=== PATIENT | female | born 1970 | race Two or more races ===

== ENCOUNTER 2016-07-28 07:10 | Inpatient (IN) | payer MEDICARE, OTHER ==
[~2016-07-28] VITALS: Ht 162.6 cm; Wt 66.7 kg
--- NOTE | 2016-07-28 07:18 | NUR ---
DOMONIQUE FROM [facility]. PATIENT WAS SENT BY MD IBRAHIM DUE TO RIGHT SIDE OF HEAD WOUND POSSIBLE INFECTION. PATIENT IS AWAKE, HOWEVER NON VERBAL. APPEARS IN NO APPARENT DISTRESS. SATING WELL ON ROOM AIR. OLD TRACHEOSTOMY, COVERED WITH DRY DRESSING. PATIENT HAS GT, ABDOMEN NON TENDERED. VSS. AWAITING FOR MD HOLMAN
[2016-07-28] MEDS ORDERED: CEFTRIAXONE 1GM BAG (ER ONLY) 1 GM/50 ML PIGGYBACK IV ONE (07:30)
[2016-07-28] MEDS ORDERED: VANCOMYCIN 1 GM in IV D5W 250 ML IV ONE (07:30)
[2016-07-28] MEDS ORDERED: IV NS 0.9% 1,000 ML BAG IV ONE (07:30)
--- NOTE | 2016-07-28 07:30 | NUR ---
IV ACCESSED TO LEFT HAND G18.BLOOD SAMPLE SENT TO LAB
[2016-07-28] MEDS ORDERED: IV NS 0.9% 1,000 ML ONE (07:31)
[2016-07-28] MEDS ORDERED: IV SET PRIMARY PUMP SET 1 EA INFUS.SET MC ONE ×2 (07:31→11:11)
[2016-07-28] MEDS ORDERED: IV SET PRIMARY 1 EA INFUS.SET MC ONE (07:31)
[2016-07-28] MEDS ORDERED: CEFTRIAXONE 1GM BAG (ER ONLY) 50 ML IV ONE (07:31)
[2016-07-28 07:48] LABS: BASOPHILS % (AUTO) 0.5 % (0.0-2.0); EOSINOPHILS # (AUTO) 0.1 /CMM (0.0-0.7); EOSINOPHILS % (AUTO) 1.8 % (0.0-6.0); HEMATOCRIT 39 % (33-45); HEMOGLOBIN 12.6 g/dL (11.5-14.8); LYMPHOCYTES # (AUTO) 1.7 /CMM (0.8-4.8); LYMPHOCYTES % (AUTO) 37.1 % (20.0-44.0); MEAN CORPUSCULAR HEMOGLOBIN 27 PG (26.0-33.0); MEAN CORPUSCULAR HGB CONC 33 g/dl (31.0-36.0); MEAN CORPUSCULAR VOLUME 82 fL (82-100); MONOCYTES # (AUTO) 0.3 /CMM (0.1-1.30); MONOCYTES % (AUTO) 7.1 % (2.0-12.0); NEUTROPHILS # (AUTO) 2.5 /CMM (1.8-8.9); NEUTROPHILS % (AUTO) 53.5 % (43.0-81.0); PLATELET COUNT (AUTO) 254 /CMM (150-450); RED BLOOD CELL COUNT(AUTO) 4.71 MIL/uL (4.0-5.2); WHITE BLOOD COUNT (AUTO) 4.7 K/uL (4.3-11.0)
[2016-07-28 07:53] LABS: CALCIUM, SERUM 8.8 mg/dL (8.5-10.1); CREATININE 0.5 mg/dL (0.6-1.3); POTASSIUM 4.2 mmol/L (3.5-5.1)
[2016-07-28] MEDS ORDERED: SODI45SP6 (07:57)
[2016-07-28] MEDS ORDERED: ACET325T53 GT (07:57)
[2016-07-28] MEDS ORDERED: LEVE100S GT (07:57)
[2016-07-28] MEDS ORDERED: SENN8.6T6 GT (07:57)
[2016-07-28] MEDS ORDERED: OMEP20CA10 GT (07:57)
[2016-07-28 08:03] LABS: LACTIC ACID 1.3 mmol/L (0.4-2.0)
[2016-07-28 08:04] LABS: INR 0.99 (0.87-1.13); PROTHROMBIN TIME 10.6 SECS (9.5-12.7)
--- NOTE | 2016-07-28 08:05 | NUR ---
MEDICATIONS GIVEN ORDERED.
--- NOTE | 2016-07-28 08:34 | NUR ---
report given to jovanny huntley for raf
--- NOTE | 2016-07-28 09:03 | NUR ---
PER JOSE A VERAS TO BE NOTIFIED FOR FURTHER QUESTIONS [phone]
[2016-07-28 09:42] VITALS: BP 116/77
--- NOTE | 2016-07-28 10:20 | NUR ---
MS/RN: notes Received new admitted patient from ER via [facility] with stable condition, patient awake, no verbal noted, initial admitted assessment completed, please completed data in flowsheets. Skin assessment done, right temporal head unhealed wound, picture taken with dressing on it, will follow up with MD prior remove dressing. patient was seen by MD at bed side. keep patient clean and comfort, keep bed low and locked all the time, will continue to monitor closely and intervene as appropriate.
[2016-07-28] MEDS ORDERED: SENNOSIDES 8.6 MG TABLET GT PRN (11:00)
[2016-07-28] MEDS ORDERED: MAGNESIUM HYDROXIDE 30 ML UDC PO PRN (11:00)
[2016-07-28] MEDS ORDERED: ACETAMINOPHEN 325 MG TABLET PO PRN (11:00)
[2016-07-28] MEDS ORDERED: ONDANSETRON HCL/PF 4 MG/2 ML VIAL IVP PRN (11:00)
[2016-07-28] MEDS ORDERED: MAG HYDROX/AL HYDROX/SIMETH 30 ML UDC PO PRN (11:00)
[2016-07-28] MEDS ORDERED: Z GUARD REMEDY 2 OZ OINT TP PRN (11:00)
[2016-07-28] MEDS ORDERED: HYDROCODONE/APAP 5/325MG 1 EACH TABLET PO PRN (11:00)
[2016-07-28] MEDS ORDERED: MORPHINE SULFATE INJ 2 MG/ML DISP.SYRIN IV PRN (11:00)
[2016-07-28] MEDS: IV D5/0.45 NACL 1,000 ML IV PRN (11:19)
[2016-07-28 16:59] VITALS: BP 132/78
[2016-07-28] MEDS: SALINE NASAL SPRAY 0.65% 1 BOTTLE BOTTLE NS SCH (17:07)
--- NOTE | 2016-07-28 17:42 | NUR ---
MS/RN: notes consent for debridement of right head and skin graft reconstruction obtained from patient's daughter Vanenssa Smallwood. patient is pulling the dressing off on right temporal, restrain order obtained from Vannessa Smallwood, risk benefits explained to patient's daughter Eidith, verbalizes understanding.
--- NOTE | 2016-07-28 18:51 | NUR ---
MS/RN: notes patient's condition remains stable, no s/s of any distress noted, will endorse to night RN for continuity of care.
--- NOTE | 2016-07-28 19:25 | NUR ---
MS RN NOTES RECEIVED PT IN BED, AWAKE, A/O X 1. DAUGHTER AT BEDSIDE. IV SITE ON LEFT HAND INTACT AND PATENT, ON D2 1/2 NS @ 75 CC /HR, IVF INFUSING WELL. RIGHT LATERAL TEMPORAL WOUND WITH INTACT DRESSING. ALL NEEDS ATTENDED. KEPT COMFORTABLE. SAFETY PRECAUTIONS OBSERVED. CALL LIGHT WITHIN REACH. WILL CONTINUE TO MONITOR.
[2016-07-28 20:00] VITALS: BP 114/81
[2016-07-28] MEDS: LEVETIRACETAM SOL (5 ML) 100 MG/ML UDC GT SCH (21:06)
[2016-07-28] MEDS: GLYTROL 1,000 ML BAG GT PRN (22:40)
[2016-07-29] VITALS (8 sets, daily range): BP systolic 96–143; BP diastolic 68–83
[2016-07-29] MEDS: IV D5/0.45 NACL 1,000 ML IV PRN ×2 (01:30→17:21)
[2016-07-29 06:29] LABS: BASOPHILS % (AUTO) 0.4 % (0.0-2.0); EOSINOPHILS # (AUTO) 0.1 /CMM (0.0-0.7); EOSINOPHILS % (AUTO) 2.4 % (0.0-6.0); HEMATOCRIT 35 % (33-45); HEMOGLOBIN 11.6 g/dL (11.5-14.8); LYMPHOCYTES # (AUTO) 1.5 /CMM (0.8-4.8); MEAN CORPUSCULAR HEMOGLOBIN 27 PG (26.0-33.0); MEAN CORPUSCULAR HGB CONC 33 g/dl (31.0-36.0); MEAN CORPUSCULAR VOLUME 83 fL (82-100); MONOCYTES # (AUTO) 0.4 /CMM (0.1-1.30); MONOCYTES % (AUTO) 9.1 % (2.0-12.0); NEUTROPHILS # (AUTO) 2.1 /CMM (1.8-8.9); NEUTROPHILS % (AUTO) 51.1 % (43.0-81.0); PLATELET COUNT (AUTO) 241 /CMM (150-450); RED BLOOD CELL COUNT(AUTO) 4.26 MIL/uL (4.0-5.2); WHITE BLOOD COUNT (AUTO) 4.1 K/uL (4.3-11.0)
[2016-07-29 06:36] LABS: RETICULOCYTE COUNT 2.7 % (0.6-2.5)
[2016-07-29 06:40] LABS: INR 1.04 (0.87-1.13); PROTHROMBIN TIME 11.1 SECS (9.5-12.7)
[2016-07-29 06:47] LABS: ALBUMIN 3.1 g/dL (3.4-5.0); BILIRUBIN,TOTAL 0.6 mg/dL (0.2-1.0); CALCIUM, SERUM 8.6 mg/dL (8.5-10.1); CREATININE 0.6 mg/dL (0.6-1.3); MAGNESIUM 1.8 mg/dL (1.8-2.4); PHOSPHORUS 4.6 mg/dL (2.5-4.9); POTASSIUM 3.9 mmol/L (3.5-5.1); THYROID STIMULATING HORMONE 1.901 uIU/mL (0.358-3.74); TOTAL PROTEIN, SERUM 7.7 g/dL (6.4-8.2)
--- NOTE | 2016-07-29 07:20 | NUR ---
MS RN NOTES PT IN BED, AWAKE, A/O X 1. ON NPO SINCE 12 MN FOR DEBRIDEMENT OF RIGHT HEAD, SKIN GRAFT RECONSTRUCTION. IV SITE ON LEFT HAND INTACT AND PATENT, ON D2 1/2 NS @ 75 CC /HR, IVF INFUSING WELL. RIGHT LATERAL TEMPORAL WOUND WITH INTACT DRESSING. NO S/S OF PAIN OR DISCOMFORT AT THIS TIME. ALL NEEDS ATTENDED. KEPT COMFORTABLE. SAFETY PRECAUTIONS OBSERVED. CALL LIGHT WITHIN REACH. WILL ENDORSE RO NEXT SHIFT FOR GOVIND.
[2016-07-29] MEDS: PANTOPRAZOLE 40 MG TABLET.DR PO SCH (07:30)
--- NOTE | 2016-07-29 07:35 | NUR ---
RN OPEN NOTES RECEIVED REPORT FROM BRIQUETTE MACHINE OPERATOR HELPER NURSE. PATIENT IS NPO DUE TO SCHEDULED SURGERY FOR TODAY. PATIENT IS IN BED, AWAKE, NON VERBAL. NO SIGNS AND SYMPTOMS OF DISTRESS. BED IN LOW POSITION, LOCKED AND TWO SIDE RAILS ARE UP. WILL CONTINUE TO ASSESS AND MONITOR PATIENT THROUGH OUT MY SHIFT.
[2016-07-29] MEDS: ACETAMINOPHEN 325 MG TABLET PO SCH (08:51)
[2016-07-29] MEDS: LEVETIRACETAM SOL (5 ML) 100 MG/ML UDC GT SCH ×2 (08:51→20:51)
[2016-07-29] MEDS: SALINE NASAL SPRAY 0.65% 1 BOTTLE BOTTLE NS SCH ×2 (09:00→17:19)
--- NOTE | 2016-07-29 09:23 | NUR ---
CALLED PHARMACY TO SEND A NEW OCEAN NASAL SPRAY THE OLD ONE IS NOT AT THE CASSETTE OR BEDSIDE
--- NOTE | 2016-07-29 09:27 | NUR ---
PATIENT LEFT THE FLOOR FOR SURGERY.
[2016-07-29] MEDS ORDERED: MIDAZOLAM HCL 2 MG/2ML VIAL ONE (10:05)
[2016-07-29] MEDS ORDERED: FENTANYL PF 100MCG/2ML AMPUL ONE (10:05)
[2016-07-29] MEDS ORDERED: MINERAL OIL 10 ML VIAL MC ONE (10:06)
[2016-07-29] MEDS ORDERED: LIDOCAINE HCL/PF 1% 30 ML SDV ONE (10:06)
[2016-07-29] MEDS ORDERED: BUPIVACAINE MPF W/EPI 0.25% 30 ML VIAL ONE (10:06)
--- NOTE | 2016-07-29 11:24 | NUR ---
PATIENT RETURNED TO [facility] FROM SURGERY. PER DR ORDERS, RESUME ALL PRE OPERATIONS ORDERS. PATIENT VITAL SIGNS ARE BLOOD PRESSURE 96/68, HEART RATE 63, OXYGEN 96% AND TEMPERATURE 98.1. WILL CONTINUE TO MONITOR PATIENT VITAL SIGNS Q15MIN FOR ONE HOUR OR UNTIL STABLE.
[2016-07-29] MEDS: GLYTROL 1,000 ML BAG GT PRN (11:37)
--- NOTE | 2016-07-29 19:14 | NUR ---
RN CLOSING NOTES RECEIVED REPORT FROM RAG BOILER NURSE. PATIENT IS IN BED, NON VERBAL. FAMILY AT BEDSIDE. PATIENT HAD A DEBRIDEMENT AND GRAFT DONE TODAY. NO SIGNS AND SYMPTOMS OF DISTRESS. BED IN LOW POSITION, LOCKED AND TWO SIDE RAILS ARE UP. WILL ENDORSE TO RAG BOILER NURSE.
--- NOTE | 2016-07-29 19:25 | NUR ---
MS RN NOTES RECEIVED PT IN BED, AWAKE, A/O X 1 . NON VERBAL. MAKES EYE CONTACT. NO DISTRESS, NO SOB NOTED. ON RA, O2 SATURATION IS 96 %. ABDOMEN IS SOFT AND NON DISTENDED. GTF LESLYE WELL. NO RESIDUAL NOTED AT THIS TIME. HOB ELEVATED FOR ASPIRATION PRECAUTION. NO S/S OF PAIN OR DISCOMFORT. S/P DEBRIDEMENT ON RIGHT HEAD, WITH INTACT DRESSING. ALL NEEDS ATTENDED. KEPT COMFORTABLE. CALL LIGHT WITHIN REACH. WILL CONT TO MONITOR.
[2016-07-30] MEDS ORDERED: IV SET PRIMARY PUMP SET 1 EA INFUS.SET MC ONE (05:41)
[2016-07-30] MEDS: IV D5/0.45 NACL 1,000 ML IV PRN ×2 (05:55→23:53)
--- NOTE | 2016-07-30 06:40 | NUR ---
MS RN NOTES PT IN BED,ASLEEP AT THIS TIME. A/O X 1. NON VERBAL. AROUSABLE, MAKES EYE CONTACT. NO DISTRESS, NO SOB NOTED. ON RA, O2 SATURATION IS 96 %. ABDOMEN IS SOFT AND NON DISTENDED. IV SITE ON LEFT HAND INTACT AND PATENT, NO S/S OF INFILTRATION NOTED. IVF INFUSING WELL. GTF LESLYE WELL. NO RESIDUAL NOTED AT THIS TIME. HOB ELEVATED FOR ASPIRATION PRECAUTION. NO S/S OF PAIN OR DISCOMFORT. S/P DEBRIDEMENT ON RIGHT HEAD, WITH INTACT DRESSING. RIGHT THIGH SKIN GRAFT SITE WITH INTACT DRESSING. ALL NEEDS ATTENDED. KEPT COMFORTABLE. CALL LIGHT WITHIN REACH. WILL ENDORSE TO NEXT SHIFT FOR GOVIND.
--- NOTE | 2016-07-30 07:48 | NUR ---
RN OPEN NOTES RECEIVED REPORT FROM NATIONAL PARK RANGER NURSE. PATIENT IS IN BED, AWAKE, NON VERBAL. NO SIGNS AND SYMPTOMS OF DISTRESS. BED IN LOW POSITION, LOCKED AND 2 SIDE RAILS ARE UP. WILL CONTINUE TO ASSESS AND MONITOR PATIENT.
[2016-07-30 08:00] VITALS: BP 128/63
[2016-07-30] MEDS: SALINE NASAL SPRAY 0.65% 1 BOTTLE BOTTLE NS SCH ×2 (08:29→17:12)
[2016-07-30] MEDS: PANTOPRAZOLE 40 MG TABLET.DR PO SCH (08:29)
[2016-07-30] MEDS: ACETAMINOPHEN 325 MG TABLET PO SCH (08:29)
[2016-07-30] MEDS: LEVETIRACETAM SOL (5 ML) 100 MG/ML UDC GT SCH ×2 (08:29→22:23)
[2016-07-30 12:27] LABS: BASOPHILS % (AUTO) 0.4 % (0.0-2.0); EOSINOPHILS % (AUTO) 0.7 % (0.0-6.0); HEMATOCRIT 34 % (33-45); HEMOGLOBIN 11.3 g/dL (11.5-14.8); LYMPHOCYTES # (AUTO) 2.2 /CMM (0.8-4.8); LYMPHOCYTES % (AUTO) 39.8 % (20.0-44.0); MEAN CORPUSCULAR HEMOGLOBIN 27 PG (26.0-33.0); MEAN CORPUSCULAR HGB CONC 33 g/dl (31.0-36.0); MEAN CORPUSCULAR VOLUME 82 fL (82-100); MONOCYTES # (AUTO) 0.5 /CMM (0.1-1.30); MONOCYTES % (AUTO) 9.7 % (2.0-12.0); NEUTROPHILS # (AUTO) 2.8 /CMM (1.8-8.9); NEUTROPHILS % (AUTO) 49.4 % (43.0-81.0); PLATELET COUNT (AUTO) 248 /CMM (150-450); RDW COEFFICIENT OF VARIATION 16.6 (11.5-15.0); RED BLOOD CELL COUNT(AUTO) 4.18 MIL/uL (4.0-5.2); WHITE BLOOD COUNT (AUTO) 5.6 K/uL (4.3-11.0)
[2016-07-30 12:36] LABS: CALCIUM, SERUM 8.8 mg/dL (8.5-10.1); CREATININE 0.5 mg/dL (0.6-1.3); MAGNESIUM 1.8 mg/dL (1.8-2.4); POTASSIUM 3.5 mmol/L (3.5-5.1)
[2016-07-30] MEDS: GLYTROL 1,000 ML BAG GT PRN (15:44)
[2016-07-30 16:00] VITALS: BP 167/70
[2016-07-30] MEDS ORDERED: diphenhydrAMINE HCL ELIX 25 MG/10 ML UDC PO ONE (17:30)
--- NOTE | 2016-07-30 18:45 | NUR ---
RN CLOSING NOTES PATIENT IS IN BED, WITH HER EYES OPEN. NON VERBAL. FAMILY AT BEDSIDE. NO SIGNS AND SYMPTOMS OF DISTRESS OR PAIN. PATIENT SEEMS TO HAVE ITCHINESS IN HER FACE, ONE TIME ORDER OF BENADRYL RECEIVED AND CARRIED OUT. VITAL SIGNS ARE WITHIN ACCEPTABLE RANGE. IV SITE IS INTACT AND CONTINUOUSLY FLUID IS CURRENTLY RUNNING. GT IS INTACT AND CURRENTLY RUNNING AT 65CC.HR. BED IS IN LOW POSITION, LOCKED AND 2 SIDE RAILS ARE UP. WILL ENDORSE TO FIRE ALARM INSTALLER NURSE.
--- NOTE | 2016-07-30 19:15 | NUR ---
MS RN NOTES RECEIVED PT IN BED, AWAKE, A/O X 1 . NON VERBAL. MAKES EYE CONTACT. SON AND FAMILY MEMBER AT BED SIDE. NO DISTRESS, NO SOB NOTED. ON RA, O2 SATURATION IS 96 %. ABDOMEN IS SOFT AND NON DISTENDED. GTF LESLYE WELL. NO RESIDUAL NOTED AT THIS TIME. HOB ELEVATED FOR ASPIRATION PRECAUTION. NO S/S OF PAIN OR DISCOMFORT.IV SITE ON LEFT HAND INTACT AND PATENT , NO S/S OF INFILTRATION NOTED. S/P DEBRIDEMENT ON RIGHT HEAD, WITH INTACT DRESSING. ALL NEEDS ATTENDED. KEPT COMFORTABLE. CALL LIGHT WITHIN REACH. WILL CONT TO MONITOR.
[2016-07-30 20:00] VITALS: BP 135/76
[2016-07-31 03:35] VITALS: BP 135/76
--- NOTE | 2016-07-31 06:50 | NUR ---
MS RN NOTES PT IN BED, A/O X 1 . NON VERBAL. MAKES EYE CONTACT. NO DISTRESS, NO SOB NOTED. ON RA, O2 SATURATION IS 96 %. ABDOMEN IS SOFT AND NON DISTENDED. GTF LESLYE WELL. NO RESIDUAL NOTED AT THIS TIME. HOB ELEVATED FOR ASPIRATION PRECAUTION. NO S/S OF PAIN OR DISCOMFORT.IV SITE ON LEFT HAND INTACT AND PATENT , NO S/S OF INFILTRATION NOTED. S/P DEBRIDEMENT ON RIGHT HEAD, WITH INTACT DRESSING. ALL NEEDS ATTENDED. KEPT COMFORTABLE. CALL LIGHT WITHIN REACH. WILL ENDORSE TO NEXT SHIFT FOR GOVIND.
--- NOTE | 2016-07-31 07:30 | NUR ---
RECEIVED PT. THIS AM NON VERBAL,ALERT AND ORIENTED X1.SIDE RAILS UP. APPEARS COMFORTABLE
[2016-07-31 07:37] LABS: BASOPHILS % (AUTO) 0.5 % (0.0-2.0); EOSINOPHILS # (AUTO) 0.1 /CMM (0.0-0.7); HEMATOCRIT 36 % (33-45); HEMOGLOBIN 11.9 g/dL (11.5-14.8); LYMPHOCYTES # (AUTO) 2.1 /CMM (0.8-4.8); MEAN CORPUSCULAR HEMOGLOBIN 27 PG (26.0-33.0); MEAN CORPUSCULAR HGB CONC 33 g/dl (31.0-36.0); MEAN CORPUSCULAR VOLUME 83 fL (82-100); MONOCYTES # (AUTO) 0.5 /CMM (0.1-1.30); MONOCYTES % (AUTO) 9.2 % (2.0-12.0); NEUTROPHILS # (AUTO) 2.9 /CMM (1.8-8.9); NEUTROPHILS % (AUTO) 51.3 % (43.0-81.0); PLATELET COUNT (AUTO) 249 /CMM (150-450); RDW COEFFICIENT OF VARIATION 16.8 (11.5-15.0); RED BLOOD CELL COUNT(AUTO) 4.36 MIL/uL (4.0-5.2); WHITE BLOOD COUNT (AUTO) 5.6 K/uL (4.3-11.0)
[2016-07-31 07:44] LABS: CALCIUM, SERUM 8.7 mg/dL (8.5-10.1); CREATININE 0.5 mg/dL (0.6-1.3); MAGNESIUM 1.8 mg/dL (1.8-2.4); POTASSIUM 3.6 mmol/L (3.5-5.1)
[2016-07-31 08:00] VITALS: BP 124/82
[2016-07-31] MEDS: LEVETIRACETAM SOL (5 ML) 100 MG/ML UDC GT SCH ×2 (10:27→21:05)
[2016-07-31] MEDS: PANTOPRAZOLE 40 MG TABLET.DR PO SCH (10:27)
[2016-07-31] MEDS: ACETAMINOPHEN 325 MG TABLET PO SCH (10:27)
[2016-07-31] MEDS: SALINE NASAL SPRAY 0.65% 1 BOTTLE BOTTLE NS SCH ×2 (10:31→18:32)
--- NOTE | 2016-07-31 12:30 | NUR ---
DARREN LEDEZMA CALLED PT. WITH LRG. AMT. YELLOWISH DRAINAGE FROM DONOR SITE RT. THIGH,DRESSING REPLACED AT DONOR SITE ALL BUT XEROFORM DRESSING INTACT.HEAD DRESSING DRY AND INTACT.
--- NOTE | 2016-07-31 13:00 | NUR ---
NEW ORDERS PUT IN COMPUTER FOR WD. CARE ON PT.
[2016-07-31 16:00] VITALS: BP 123/82
[2016-07-31] MEDS: GLYTROL 1,000 ML BAG GT PRN (16:26)
[2016-07-31] MEDS: IV D5/0.45 NACL 1,000 ML IV PRN (16:39)
--- NOTE | 2016-07-31 18:00 | NUR ---
PT,S MOM AT BEDSIDE ALL DAY.
--- NOTE | 2016-07-31 19:00 | NUR ---
MS RN NOTES PATIENT RECEIVED AWAKE IN BED IN NO ACUTE SIGNS OF DISTRESS, IN STABLE CONDITION, ALERT AND ORIENTED X 1, GT RUNNING INFUSING TOLERATED WELL. NO C/O PAIN OR DISCOMFORTS VOICED AT THIS TIME. ON ROOM AIR, NO SOB NOTED. IV ACCESS INTACT NO S/S OF INFILTRATION NOTED. CALL LIGHT WITHIN REACH. BED LOW AND LOCKED. ALL SAFETY MEASURES IN PLACE. WILL CONTINUE TO MONITOR ACCORDINGLY
[2016-07-31 20:00] VITALS: BP 116/79
[2016-07-31 20:36] VITALS: BP 116/79
--- NOTE | 2016-08-01 06:24 | NUR ---
MS RN CLOSING NOTES PATIENT COMFORTABLY IN BED ASLEEP AND EASILY AWAKEN, HEAD OF BED ELEVATED FOR BETTER LUNG EXPANSION AND BETTER CIRCULATION, TOLERATING ROOM AIR, SP02 98% R.A ALERT AND VERBALLY X 1 NON VERBAL, NO S/S OF DISTRESS, ON D51/2 NS RUNNING AT 40 CC HR, TOLERATED WELL, IV SITE INTACT W/ NO S/S OF INFILTRATION NOTED. GT SITE INTACT INFUSING GLYTROL 65CC/HR TOLERATED WELL. NO S/S OF INFECTION, GT WITH NO S/S OF INFECTION NOTED. RESPIRATIONS EVEN UNLABORED BREATH SOUNDS. APICAL PULSE REGULAR; NO S/S OF HYPO/HYPERGLYCEMIA. GOOD SKIN CARE PROVIDED. PATIENT IN STABLE CONDITION WITH NO SOB NO S/S OF DISTRESS NO NAUSEA AND VOMITING NO HEADACHE NO PAIN, NO CHEST PAIN SAFETY ENVIRONMENT PROVIDED. FREE OF CLUTTERS, SAFE HAZARD FREE ENVIRONMENT. NEEDS ATTENDED AND ANTICIPATED, NURSING CARE RENDERED, KEPT CLEAN AND DRY AND COMFORTABLE. ALL DUE MEDS WAS GIVEN. CALL LIGHT IN REACH, BED LOWERED AND LOCKED, SR X2 FOR SAFETY AND WILL ENDORSE CONTINUE PLAN OF CARE.
--- NOTE | 2016-08-01 07:31 | NUR ---
AM RN NOTES RECEIVED PT IN STABLE CONDITION, AWAKE, HOB ELEVATED, NO SOB OR DISTRESS NOTED, NO S/S OF PAIN OR DISCOMFORT, WILL MONITOR.
[2016-08-01 07:47] LABS: BASOPHILS % (AUTO) 0.4 % (0.0-2.0); EOSINOPHILS # (AUTO) 0.1 /CMM (0.0-0.7); EOSINOPHILS % (AUTO) 1.9 % (0.0-6.0); HEMATOCRIT 37 % (33-45); LYMPHOCYTES # (AUTO) 1.7 /CMM (0.8-4.8); MEAN CORPUSCULAR HEMOGLOBIN 27 PG (26.0-33.0); MEAN CORPUSCULAR HGB CONC 33 g/dl (31.0-36.0); MEAN CORPUSCULAR VOLUME 83 fL (82-100); MONOCYTES # (AUTO) 0.5 /CMM (0.1-1.30); MONOCYTES % (AUTO) 7.9 % (2.0-12.0); NEUTROPHILS # (AUTO) 3.6 /CMM (1.8-8.9); NEUTROPHILS % (AUTO) 60.8 % (43.0-81.0); PLATELET COUNT (AUTO) 257 /CMM (150-450); RDW COEFFICIENT OF VARIATION 16.6 (11.5-15.0); RED BLOOD CELL COUNT(AUTO) 4.46 MIL/uL (4.0-5.2)
[2016-08-01 07:55] LABS: CALCIUM, SERUM 8.9 mg/dL (8.5-10.1); CREATININE 0.5 mg/dL (0.6-1.3)
[2016-08-01 08:00] VITALS: BP 122/80
[2016-08-01] MEDS: PANTOPRAZOLE 40 MG TABLET.DR PO SCH (08:32)
[2016-08-01] MEDS: LEVETIRACETAM SOL (5 ML) 100 MG/ML UDC GT SCH ×2 (08:32→21:17)
[2016-08-01] MEDS: ACETAMINOPHEN 325 MG TABLET PO SCH (08:32)
[2016-08-01] MEDS: SALINE NASAL SPRAY 0.65% 1 BOTTLE BOTTLE NS SCH ×2 (08:33→16:32)
[2016-08-01] MEDS: GLYTROL 1,000 ML BAG GT PRN (15:06)
[2016-08-01 16:00] VITALS: BP 122/85
[2016-08-01] MEDS: IV D5/0.45 NACL 1,000 ML IV PRN (16:33)
--- NOTE | 2016-08-01 18:06 | NUR ---
PT IN STABLE CONDITION, AMBULATED TO RESTROOM, SURGICAL SITE IS CLEAN AND DRY, NEW DRESSING APPLIED, NO BLEEDING OR REDNESS NOTED. NO S/S OR HYPO OR HYPERGLYCEMIA, WILL INDORSE PT TO NEXT SHIFT. Addendum: 08/01/16 at 1813 by BONY WELLS ADDENDUM: PLEASE DISCARD THE NOTE, DOCUMENTED ON WRONG PT.
--- NOTE | 2016-08-01 18:13 | NUR ---
PT COMFORTABLY RESTING IN BED, VISITED BY FAMILY, NO SOB OR DISTRESS NOTED, NO S/S PF PAIN , TOLERATES WELL TO GTF, HOB ELEVATED, WOUND DRESSINGS ARE INTACT, DRY AND CLEAN, WILL INDORSE TO NEXT SHIFT FOR GOVIND.
[2016-08-01 19:00] VITALS: BP 115/85
--- NOTE | 2016-08-01 19:15 | NUR ---
RN OPEN NOTES RECEIVED PATIENT AWAKE IN BED WITH FAMILY AT BEDSIDE. A/O X1, PATIENT IS NON-VERBAL WITH EYE OPENING RESPONSE. NO SIGNS OF DISTRESS OR DISCOMFORT. BREATHING EVEN AND UNLABORED. IV ACCESS IN L HAND WITH D5 1/2 NS INFUSING, PATENT AND INTACT, NO SIGNS OF REDNESS OR INFILTRATION. ALSO HAS GT WITH GLYTROL INFUSING, TOLERATING WELL. HOB ELEVATED. DRESSINGS ON R TEMPORAL AREA AND R THIGH C/D/I. BED IN LOW LOCKED POSITION WITH SIDE RAILS X2. CALL LIGHT WITHIN REACH. WILL CONTINUE TO MONITOR.
[2016-08-01 20:00] VITALS: BP 115/85
[2016-08-02] MEDS: GLYTROL 1,000 ML BAG GT PRN (05:21)
--- NOTE | 2016-08-02 06:37 | NUR ---
RN CLOSING NOTES PATIENT RESTING IN BED. A/O X1, PATIENT IS NON-VERBAL WITH EYE OPENING RESPONSE. NO SIGNS OF DISTRESS OR DISCOMFORT. BREATHING EVEN AND UNLABORED. IV ACCESS IN L HAND WITH D5 1/2 NS INFUSING, PATENT AND INTACT, NO SIGNS OF REDNESS OR INFILTRATION. ALSO HAS GT WITH GLYTROL INFUSING ORDERED, PATIENT TOLERATING WELL. HOB ELEVATED. DRESSINGS ON R TEMPORAL AREA AND R THIGH C/D/I. ALLL NEEDS MET. NO SIGNIFICANT CHANGES THROUGH THE NIGHT. PATIENT KEPT CLEAN DRY AND COMFORTABLE. REPOSITIONED Q2H. BED IN LOW LOCKED POSITION WITH SIDE RAILS X2. CALL LIGHT WITHIN REACH. WILL ENDORSE TO AM SHIFT.
[2016-08-02 06:41] LABS: BASOPHILS % (AUTO) 0.4 % (0.0-2.0); EOSINOPHILS # (AUTO) 0.1 /CMM (0.0-0.7); EOSINOPHILS % (AUTO) 2.3 % (0.0-6.0); HEMATOCRIT 38 % (33-45); HEMOGLOBIN 12.2 g/dL (11.5-14.8); LYMPHOCYTES # (AUTO) 1.8 /CMM (0.8-4.8); LYMPHOCYTES % (AUTO) 29.6 % (20.0-44.0); MEAN CORPUSCULAR HEMOGLOBIN 27 PG (26.0-33.0); MEAN CORPUSCULAR HGB CONC 32 g/dl (31.0-36.0); MEAN CORPUSCULAR VOLUME 83 fL (82-100); MONOCYTES # (AUTO) 0.5 /CMM (0.1-1.30); MONOCYTES % (AUTO) 8.1 % (2.0-12.0); NEUTROPHILS # (AUTO) 3.6 /CMM (1.8-8.9); NEUTROPHILS % (AUTO) 59.6 % (43.0-81.0); PLATELET COUNT (AUTO) 238 /CMM (150-450); RDW COEFFICIENT OF VARIATION 16.5 (11.5-15.0); RED BLOOD CELL COUNT(AUTO) 4.56 MIL/uL (4.0-5.2)
[2016-08-02 06:51] LABS: CALCIUM, SERUM 8.8 mg/dL (8.5-10.1); CREATININE 0.4 mg/dL (0.6-1.3); POTASSIUM 3.9 mmol/L (3.5-5.1)
--- NOTE | 2016-08-02 07:15 | NUR ---
ms RN initial notes Received patient in bed, asleep, head of bed elevated, no SOB or distress noted, on room air and tolerated well. Dressing on the head intact and no drainage noted. Gt intact and patent with GT feeding Glytrol @ 65ml/hr tolerated well. IV intact and patent with IVF infusing well. Kept patient clean and comfortable in bed, call light with in patient reach, will continue to monitor accordingly.
[2016-08-02 08:00] VITALS: BP_SYST 111; BP_SYST 90; BP_DIAS 67; BP_DIAS 80
[2016-08-02] MEDS: LEVETIRACETAM SOL (5 ML) 100 MG/ML UDC GT SCH ×2 (08:46→21:48)
[2016-08-02] MEDS: PANTOPRAZOLE 40 MG TABLET.DR PO SCH (08:47)
[2016-08-02] MEDS: ACETAMINOPHEN 325 MG TABLET PO SCH (08:47)
[2016-08-02] MEDS: SALINE NASAL SPRAY 0.65% 1 BOTTLE BOTTLE NS SCH ×2 (08:48→16:52)
[2016-08-02 16:00] VITALS: BP 119/81
[2016-08-02] MEDS: IV D5/0.45 NACL 1,000 ML IV PRN (18:51)
--- NOTE | 2016-08-02 19:10 | NUR ---
RN OPEN NOTES RECEIVED PATIENT RESTING IN BED WITH FAMILY AT BEDSIDE. A/O X1, PATIENT IS NON-VERBAL WITH EYE OPENING RESPONSE. NO SIGNS OF DISTRESS OR DISCOMFORT. BREATHING EVEN AND UNLABORED. IV ACCESS IN L HAND WITH D5 1/2 NS INFUSING, PATENT AND INTACT, NO SIGNS OF REDNESS OR INFILTRATION. ALSO HAS GT WITH GLYTROL INFUSING, PATENT AND INTACT, TOLERATING WELL. HOB ELEVATED. DRESSINGS ON R TEMPORAL AREA AND R THIGH C/D/I. BED IN LOW LOCKED POSITION WITH SIDE RAILS X2. CALL LIGHT WITHIN REACH. WILL CONTINUE TO MONITOR.
--- NOTE | 2016-08-02 19:19 | NUR ---
ms rn closing notes All needs provided, attended, and anticipated. Kept patient clean and comfortable in bed, call light with in patient reach, will continue to monitor accordingly. Endorsed to next shift RN to continue care.
[2016-08-02 20:00] VITALS: BP 130/89
[2016-08-02 20:07] VITALS: BP 130/89
[2016-08-03] MEDS: GLYTROL 1,000 ML BAG GT PRN ×2 (01:49→23:26)
--- NOTE | 2016-08-03 06:34 | NUR ---
RN OPEN NOTES PATIENT RESTING IN BED. A/O X1, PATIENT IS NON-VERBAL WITH EYE OPENING RESPONSE. NO SIGNS OF DISTRESS OR DISCOMFORT. BREATHING EVEN AND UNLABORED. IV ACCESS IN L HAND WITH D5 1/2 NS INFUSING, PATENT AND INTACT, NO SIGNS OF REDNESS OR INFILTRATION. ALSO HAS GT WITH GLYTROL INFUSING, PATENT AND INTACT, TOLERATING WELL. HOB ELEVATED. DRESSINGS ON R TEMPORAL AREA AND R THIGH C/D/I. ALL NEEDS ATTENDED TO. NO SIGNIFICANT CHANGES THROUGH THE NIGHT. REPOSITIONED PATIENT Q2H. BED IN LOW LOCKED POSITION WITH SIDE RAILS X2. CALL LIGHT WITHIN REACH. WILL ENDORSE TO AM SHIFT FOR GOVIND.
[2016-08-03 06:49] LABS: BASOPHILS % (AUTO) 0.5 % (0.0-2.0); EOSINOPHILS # (AUTO) 0.2 /CMM (0.0-0.7); EOSINOPHILS % (AUTO) 4.1 % (0.0-6.0); HEMATOCRIT 38 % (33-45); LYMPHOCYTES # (AUTO) 2.1 /CMM (0.8-4.8); LYMPHOCYTES % (AUTO) 41.7 % (20.0-44.0); MEAN CORPUSCULAR HEMOGLOBIN 26 PG (26.0-33.0); MEAN CORPUSCULAR HGB CONC 32 g/dl (31.0-36.0); MEAN CORPUSCULAR VOLUME 83 fL (82-100); MONOCYTES # (AUTO) 0.4 /CMM (0.1-1.30); MONOCYTES % (AUTO) 7.4 % (2.0-12.0); NEUTROPHILS # (AUTO) 2.4 /CMM (1.8-8.9); NEUTROPHILS % (AUTO) 46.3 % (43.0-81.0); PLATELET COUNT (AUTO) 238 /CMM (150-450); RDW COEFFICIENT OF VARIATION 16.7 (11.5-15.0); RED BLOOD CELL COUNT(AUTO) 4.55 MIL/uL (4.0-5.2); WHITE BLOOD COUNT (AUTO) 5.1 K/uL (4.3-11.0)
[2016-08-03 07:13] LABS: CALCIUM, SERUM 8.7 mg/dL (8.5-10.1); CREATININE 0.5 mg/dL (0.6-1.3); POTASSIUM 3.8 mmol/L (3.5-5.1)
[2016-08-03 08:00] VITALS: BP 120/77
[2016-08-03] MEDS: PANTOPRAZOLE 40 MG TABLET.DR PO SCH (09:00)
[2016-08-03] MEDS: LEVETIRACETAM SOL (5 ML) 100 MG/ML UDC GT SCH ×2 (09:00→20:19)
[2016-08-03] MEDS: ACETAMINOPHEN 325 MG TABLET PO SCH (09:00)
[2016-08-03] MEDS: SALINE NASAL SPRAY 0.65% 1 BOTTLE BOTTLE NS SCH ×2 (09:01→17:23)
--- NOTE | 2016-08-03 09:15 | NUR ---
Patient tolerated 10% of food this am. Mother fed patient without difficulty. INSULATION ENGINEMAN noted patient spitting food back. Pass of am medication via g-tube. Feeding restarted alarming as occlusion at 245ml. Site flushed with sterile water afterward. Residual check later.
--- NOTE | 2016-08-03 12:36 | NUR ---
TUBE FEEDING IN OFF POSITION AFTER 367ML HAD GONE THROUGH. VERIFIED PATIENT BATTERY IN WALL. RESIDUAL CHECK = 0 ML. STARTED GTUBE FEEDING.
[2016-08-03 16:00] VITALS: BP 119/88
[2016-08-03] MEDS: IV D5/0.45 NACL 1,000 ML IV PRN (19:38)
--- NOTE | 2016-08-03 19:45 | NUR ---
MS RN NOTE RECEIVED PATIENT FROM DAY SHIFT, PATIENT IS ALERT AND ORIENTEDX1, ON BED REST. SURGICAL DRESSING ON HER HEAD AND RIGHT TIGHT NOTED, NO ACTIVE BLEEDING PRESENT. PER DAY SHIFT, PATIENT HAS SNORING SOUND ON HER LUNG BASE, UPON AUSCULTATION; MILD SNORING SOUND PRESENT ON LEFT SIDE, WILL CONTINUE TO MONITOR. G TUBE PRESENT WITH GLYTROL 65ML/HR, RESIDUAL 50ML NOTED, TOLERATING WELL. IV ON LEFT HAND IS PATENT AND INTACT, FLUID IS RUNNING. SRX2, BED IN LOW POSITION, CALL LIGHT WITHIN REACH, WILL CONTINUE TO MONITOR PATIENT.
--- NOTE | 2016-08-03 19:47 | NUR ---
HANDOFF REPORT WITH NOC NURSE. EXPLAINED PATIENT FAMILY SAYS PATIENT MAKES A SNORING SOUND. POSSIBLE CHEST XRAY FOR RULE OUT PNA REQUEST IF MD AGREES. ALSO NOTED PATIENT HAS NASAL SPRAY AND POSSIBLE NASAL DRIP. PATIENT BREATHING EVEN AND UNLABORED. SITES OF DRESSINGS, CLEAN AND DRY. LARGEST RESIDUAL 100ML AND RECHECK ONE HOUR AFTER RESIDUAL REMOVED WAS 50ML. PATIENT TUBE FEEDING PAUSES APPROXIMATELY 3 HOURS ON SHIFT. IVF REFRESHED. SCD'S MACHINE ALARM ON PER FAMILY. NEW SCD MACHINE PLACED WITHOUT ALARM AND VERIFIED FUNCTION. PATIENT PLAYING BALL WITH FAMILY AT BEDSIDE AND ATTEMPTING TO THROW TO A [employer] HER SON, MED HAD MADE HER.
[2016-08-03 20:00] VITALS: BP 123/89
--- NOTE | 2016-08-04 06:42 | NUR ---
MS RN NOTE PATIENT IS RESTING ON BED COMFORTABLY, NO ACUTE DISTRESS NOTED DURING THE INDUSTRIAL ROOFER. NO ACTIVE BLEEDING PRESENT ON SURGICAL DRESSING ON HER HEAD AND RIGHT THIGH. MORNING CARE RENDERED. ALL DUE MEDS GIVEN. WILL ENDORSE TO DAY SHIFT NURSE FOR GOVIND.
[2016-08-04 08:00] VITALS: BP_SYST 119; BP_DIAS 70; BP_DIAS 72
--- NOTE | 2016-08-04 08:00 | NUR ---
RN MS NOTES RECEIVED PATIENT IN BED AWAKE, IN NO APPARENT DISTRESS, NO SOB NOTED. PATIENT DOES NOT APPEAR TO BE IN PAIN, NO FACIAL GRIMACING NOTED, RESTING COMFORTABLY. BOTH DRESSINGS CLEAN AND INTACT. ALL NEEDS MET, KEPT CLEAN AND DRY.
[2016-08-04] MEDS: PANTOPRAZOLE 40 MG TABLET.DR PO SCH (09:24)
[2016-08-04] MEDS: ACETAMINOPHEN 325 MG TABLET PO SCH (09:24)
[2016-08-04] MEDS: LEVETIRACETAM SOL (5 ML) 100 MG/ML UDC GT SCH ×2 (09:24→20:32)
[2016-08-04] MEDS: SALINE NASAL SPRAY 0.65% 1 BOTTLE BOTTLE NS SCH ×2 (09:33→18:13)
[2016-08-04 16:00] VITALS: BP 117/74
[2016-08-04] MEDS: GLYTROL 1,000 ML BAG GT PRN (18:13)
[2016-08-04 19:00] VITALS: BP 115/79
[2016-08-04] MEDS: IV D5/0.45 NACL 1,000 ML IV PRN (19:17)
--- NOTE | 2016-08-04 19:20 | NUR ---
RN MS CLOSING NOTES PATENT IN NO DISTRESS, NO SOB, NO FACIAL GRIMACING NOTES, RESTING COMFORTABLY. ALL NEEDS MET, KEPT CLEAN AND DRY, REPOSITION Q2HRS. BOTH DRESSINGS CLEAR AND INTACT.
--- NOTE | 2016-08-04 19:30 | NUR ---
MS RN NOTE RECEIVED PATIENT FROM DAY SHIFT, PATIENT IS ALERT AND ORIENTEDX1, ON BED REST. SURGICAL DRESSING ON HER HEAD AND RIGHT TIGHT NOTED, NO ACTIVE BLEEDING PRESENT. G TUBE PRESENT WITH GLYTROL 65ML/HR, RESIDUAL 40ML NOTED, TOLERATING WELL. IV ON LEFT HAND IS PATENT AND INTACT, FLUID IS RUNNING. SRX2, BED IN LOW POSITION, CALL LIGHT WITHIN REACH, WILL CONTINUE TO MONITOR PATIENT.
--- NOTE | 2016-08-05 06:34 | NUR ---
MS RN NOTE PATIENT IS RESTING ON BED COMFORTABLY, NO ACUTE DISTRESS NOTED DURING THE PRINTER MAINTAINER. DRESSINGS ARE C/D/I. MORNING CARE RENDERED. ALL DUE MEDS GIVEN. WILL ENDORSE TO DAY SHIFT NURSE FOR GOVIND.
[2016-08-05 06:39] LABS: BASOPHILS % (AUTO) 0.4 % (0.0-2.0); EOSINOPHILS # (AUTO) 0.2 /CMM (0.0-0.7); EOSINOPHILS % (AUTO) 2.9 % (0.0-6.0); HEMATOCRIT 36 % (33-45); HEMOGLOBIN 11.8 g/dL (11.5-14.8); LYMPHOCYTES # (AUTO) 1.7 /CMM (0.8-4.8); LYMPHOCYTES % (AUTO) 28.8 % (20.0-44.0); MEAN CORPUSCULAR HEMOGLOBIN 27 PG (26.0-33.0); MEAN CORPUSCULAR HGB CONC 33 g/dl (31.0-36.0); MEAN CORPUSCULAR VOLUME 83 fL (82-100); MONOCYTES # (AUTO) 0.5 /CMM (0.1-1.30); MONOCYTES % (AUTO) 9.2 % (2.0-12.0); NEUTROPHILS # (AUTO) 3.5 /CMM (1.8-8.9); NEUTROPHILS % (AUTO) 58.7 % (43.0-81.0); PLATELET COUNT (AUTO) 227 /CMM (150-450); RDW COEFFICIENT OF VARIATION 16.7 (11.5-15.0); RED BLOOD CELL COUNT(AUTO) 4.35 MIL/uL (4.0-5.2); WHITE BLOOD COUNT (AUTO) 5.9 K/uL (4.3-11.0)
[2016-08-05 06:54] LABS: CALCIUM, SERUM 8.8 mg/dL (8.5-10.1); CREATININE 0.4 mg/dL (0.6-1.3); POTASSIUM 3.9 mmol/L (3.5-5.1)
--- NOTE | 2016-08-05 07:30 | NUR ---
RN MS NOTES PATIENT IN BED RESTING COMFORTABLY, NO ACUTE DISTRESS NOTES, NO SOB, NOS/S OF PAIN NOTED. DRESSINGS CLEAR AND INTACT, NO S/S OF BLEEDING NOTED. IV LINE PATENT, G TUBE FEEDING INFUSING WELL. ALL NEEDS MET, KEPT CLEAN AND DRY.
[2016-08-05 08:00] VITALS: BP 114/80
[2016-08-05] MEDS: PANTOPRAZOLE 40 MG TABLET.DR PO SCH (09:11)
[2016-08-05] MEDS: LEVETIRACETAM SOL (5 ML) 100 MG/ML UDC GT SCH ×2 (09:11→20:05)
[2016-08-05] MEDS: ACETAMINOPHEN 325 MG TABLET PO SCH (09:11)
[2016-08-05] MEDS: SALINE NASAL SPRAY 0.65% 1 BOTTLE BOTTLE NS SCH ×2 (09:12→18:07)
[2016-08-05] MEDS: GLYTROL 1,000 ML BAG GT PRN (15:21)
[2016-08-05 16:00] VITALS: BP 118/71
--- NOTE | 2016-08-05 16:00 | NUR ---
RN MS NOTES PATIENT IN NO APPARENT DISTRESS, NO SOB NOTES, NO FACIAL GRIMACING NOTED, PATIENT IS RESTING COMFORTABLY DOES NOT APPEAR TO BE IN PAIN. NO SEIZURE ACTIVITY NOTED, G TUBE PATENT. DRESSINGS CLEAR AND INTACT, NO S/S OF BLEEDING NOTED. IVF DISCONTINUED NEW BAG OF GYLTROL STARTED. ALL NEEDS MET, KEPT CLEAN AND DRY.
--- NOTE | 2016-08-05 18:51 | NUR ---
RN MS CLOSING NOTES PATIENT IN NO APPARENT DISTRESS, NO SOB, NO S/S OF PAIN NOTED. G TUBE PATENT, IV FLUIDS DISCONTINUED. PER NOTES MD WAS SUPPOSED TO CHANGE THE DRESSINGS TODAY. WILL ENDORSE TO INCOMING NURSE TO F/U WITH MD. ALL NEEDS MET, KEPT CLEAN AND DRY, CALL LIGHT WITHIN REACH.
--- NOTE | 2016-08-05 19:05 | NUR ---
RN NOTE RECEIVED REPORT. PT RESTING COMFORTABLY IN BED, NON VERBAL, EYE OPENING. NO DISTRESS NOTED AT THIS TIME.; G TUBE INTACT, FLUSHED, TOLERATING FEEDING WELL. IV INTACT AND OATENT. DRESSINGS I/C/D. FAMILY AT BEDSIDE. WILL CONT TO MONITOR.
[2016-08-05 20:00] VITALS: BP 108/73
--- NOTE | 2016-08-06 07:01 | NUR ---
RN NOTE NO SIGNIFICANT CHANGES AT NIGHT. NO S/S OF ANY DISTRESS AT THIS TIME, BREATHING NON-LABORED AND EVEN. IV INTACT AND PATENT. TOLERATING G-TUBE FEEDING WELL. HEAD AND RIGHT KNEE DRESSING I/C/D. TO BE CHANGED BY MD TODAY. KEPT CLEAN AND DRY T/O SHIFT. ALSO REPOSITIONED Q2HRS TO PREVENT BREAKDOWN. WILL F/U WITH DAY SHIFT FOR GOVIND.
--- NOTE | 2016-08-06 07:45 | NUR ---
MS RN RECEIVED ON BED, NONE VERBAL, OPENS EYES ONLY, S/P HEAD DEBRIDEMENT, SITE COVERED W/ DRESSING AND KERLIX,LUNGS ARE CLEAR,ABDOMENS SOFT, G TUBE INTACT TOLERATING FEEDING WELL W/O RESIDUAL, NO S/S OF PAIN AT THIS TIME , REPOSITIONED FOR COMFORT, WILL MONITOR PATIENT'S CONDITION..
[2016-08-06 08:00] VITALS: BP 133/82
[2016-08-06] MEDS: LEVETIRACETAM SOL (5 ML) 100 MG/ML UDC GT SCH (09:35)
[2016-08-06] MEDS: ACETAMINOPHEN 325 MG TABLET PO SCH (09:35)
[2016-08-06] MEDS: PANTOPRAZOLE 40 MG TABLET.DR PO SCH (09:35)
[2016-08-06] MEDS: SALINE NASAL SPRAY 0.65% 1 BOTTLE BOTTLE NS SCH (09:36)
--- NOTE | 2016-08-06 11:00 | NUR ---
MS RN DAUGHTER RITO CALLED, ASKING WHEN WILL BE DISCHARGE, WAS TOLD THAT WE WILL BE DISCHARGE HER TODAY, WE ARE ONLY WAITING FOR THE BANK WORKER TO CHANGE THE DRESSING.
--- NOTE | 2016-08-06 12:00 | NUR ---
MS RN WAS SEEN BY LUCAS, WILL CHANGE DRESSING, CONTINUE TO MONITOR.
--- NOTE | 2016-08-06 12:30 | NUR ---
MS RN DAUGHTER CALLED AGAIN, TOLD HER THAT INSIDE SALES LEAD WILL BE HERE AND CHANGE HEAD DRESSING AT 4PM.
--- NOTE | 2016-08-06 14:00 | NUR ---
MS KENTRELL ZAVALA CHANGED DRESSING TO HEAD, PATIENT WILL BE DISCHARGE TO [facility] SOON.
--- NOTE | 2016-08-06 16:00 | NUR ---
MS RN DAUGHTER CALLED AGAIN, WAS TOLD THAT HER MOM WILL BE DISCHARGE AT 430 - 5PM.
--- NOTE | 2016-08-06 16:15 | NUR ---
MS RN DAUGHTER CAME, WAS COMPLAINING THAT NOBODY TOLD HER THAT HER MOM WILL BE DISCHARGE , I TOLD HER THAT I SPOKE TO HER A WHILE AGO THAT PT WILL BE DISCHARGE AT 430 - 5 PM, I EVEN ASK HER WHO WILL GET OTHER BELONGINGS BECAUSE PATIENT HAS SOME PRATHER , BALLOONS AND PICTURES.
--- NOTE | 2016-08-06 16:25 | NUR ---
MS RN PATIENT WAS TRANSFERRED TO [facility], REPORT GIVEN TO CITLALI PFEIFFER, NO DISTRESS NOTED,ALL NEEDS ATTENDED.
== END 2016-08-06 16:55 | DRG 856 ==
LOC: ER 07:15 → MED 08:42
PROVIDERS: ADMIT Internal Medicine; ATTEND Internal Medicine
PROC: 0KB00ZZ Excision of Head Muscle, Open Approach (ICD-10-PCS; 2016-07-29)
PROC: 0HBHXZZ Excision of Right Upper Leg Skin, External Approach (ICD-10-PCS; 2016-07-29)
PROC: 0HR0X74 Replacement of Scalp Skin with Autologous Tissue Substitute, Partial Thickness, External Approach (ICD-10-PCS; principal; 2016-07-29 10:30)
DX: T81.4XXA Infection following a procedure, initial encounter (principal); R53.2 Functional quadriplegia; G93.41 Metabolic encephalopathy; D68.59 Other primary thrombophilia; R13.10 Dysphagia, unspecified; F09 Unspecified mental disorder due to known physiological condition; Z86.73 Personal history of transient ischemic attack (TIA), and cerebral infarction without residual deficits; I10 Essential (primary) hypertension; G40.909 Epilepsy, unspecified, not intractable, without status epilepticus; Z87.820 Personal history of traumatic brain injury; Z87.891 Personal history of nicotine dependence; X58.XXXA Exposure to other specified factors, initial encounter; Y93.9 Activity, unspecified; Y99.9 Unspecified external cause status; L08.89 Other specified local infections of the skin and subcutaneous tissue; Y83.8 Other surgical procedures as the cause of abnormal reaction of the patient, or of later complication, without mention of misadventure at the time of the procedure; Z93.0 Tracheostomy status; Z93.1 Gastrostomy status; Z98.890 Other specified postprocedural states; Y92.129 Unspecified place in nursing home as the place of occurrence of the external cause
CPT/HCPCS: 36415; 70450-TC; 71010-TC; 80048-TC; 80053-TC; 80061-TC; 82542; 82746; 82962-TC; 83540-TC; 83605-TC; 83735-TC; 84100-TC; 84443-TC; 85025-TC; 85045-TC; 85652-TC; 85730-TC; 86850-TC; 87040-TC; 87081-TC; 93307-TC; A4217; A4606; A6253; A6402; A6403; J0690; J0696; J1100; J1953; J2250; J2405; J2704; J3010; J3370; J3490; J7030; J7060; Q0163; Z7610